=== PATIENT | male | born 1980 | race Caucasian/White ===

== ENCOUNTER → 2025-03-24 | Outpatient (CLI) | payer OTHER, SELFPAY ==
--- NOTE | 2025-03-24 14:30 | VAS_PTH ---
PATIENT: JEANINE RIVERO LOC: [facility] U#:[id number] AGE/SX: 45/M ROOM: RE03/24/[address]: Dr. Italo Desouza MD : 1980 BED: DIS: 03/24/2025 SPEC #: [id number] RECD: 03/24/25 15:28 STATUS: MARYJO LETICIA #: [id number] BELEM: 03/24/25 14:[address]: Italo Desouza DEPT: SURGICAL PATHOLOGY RECD BY: Kevin Alfaro Tissues: A - Vas deferens, NOS Procedures: Surgery Specimen Level II HEADER OPERATION: Bilateral partial vasectomy PRE-OP DIAGNOSIS: Sterilization TISSUE SUBMITTED: A- Right vas deferens, B- Left vas deferens MICROSCOPIC DIAGNOSIS A. Vas deferens, right, sterilization, partial vasectomy: - Complete luminal cross-section confirmed. B. Vas deferens, left, sterilization, partial vasectomy: - Complete luminal cross-section confirmed. MICROSCOPIC DESCRIPTION Slides are reviewed. GROSS DESCRIPTION Received in 2 formalin containers labeled with the patient's name and date of . Designated as: A. R vas deferens is a 0.6 x 0.2 cm addison-white cylindrical portion of tissue which is inked black and entirely submitted in 1 cassette. B. L vas deferens is a 0.7 x 0.2 cm addison-white cylindrical portion of tissue which is inked green and entirely submitted in 1 cassette. MO 03/24/2025 CPT:[id number]
== END | disposition home or self-care (01) ==
PROVIDERS: Referring Provider Surgery; Visit Provider Surgery
DX: Z30.2 Encounter for sterilization (principal)
CPT/HCPCS: 88302